=== PATIENT | female | born 1955 | race Caucasian/White ===

== ENCOUNTER → 2016-08-05 19:45 | Outpatient (CLI) | payer BC ==
[2013-08-25 10:58] VITALS: BMI 28.6
[~2016-08-05 19:45] MED LIST: BACTRIM 400-801 TAB PO; CIPRO500 MG PO; DECADRON4 MG OR; DILANTIN100 MG PO; ESTRACE2 MG PO; GENTAK5 ML EACH EYE; MUCINEX600 MG PO; NEURONTIN 100100 MG PO; PHENAZOPYRIDIN100 MG PO; PRAVACHOL40 MG PO; PROTONIX40 MG PO; PROTOPIC 0.1% O60 GM OR; SCOT-TUSSI10 MG/5 ML PO; XANAX0.5 MG OR; ZOLOFT100 MG PO
== END | disposition home or self-care (01) ==
LOC: D.SLEEP 19:45
DX: G47.36 Sleep related hypoventilation in conditions classified elsewhere (principal)

== ENCOUNTER → 2016-08-21 13:41 | Outpatient (CLI) | payer BC ==
[2013-08-25 10:58] VITALS: BMI 28.6
[2016-08-21 16:28] LABS: BASOPHILS 0.3 % (0.0-2.0); EOSINOPHILS 1.4 % (0-7); HEMATOCRIT 41.5 % (36.0-48.0); HEMOGLOBIN 13.6 g/dL (12-16); IMMATURE GRANULOCYTES 0.2 % (0-5); LYMPHOCYTES 34.6 % (15-50); MCH 31.9 pg (26.0-34.0); MCHC 32.8 g/dL (31.0-37.0); MCV 97.2 fL (80.0-100.0); MEAN PLATELET VOLUME 10.2 fL (7.4-10.4); MONOCYTES 5.6 % (2-11); NEUTROPHILS 57.9 % (40-80); RBC 4.27 10x6/uL (4.00-5.40); RDW 12.6 % (11.5-14.5); WBC 10.4 10x3/uL (4.8-10.8)
[2016-08-21 17:10] LABS: PLATELET COUNT 285 10x3/uL (130-400)
[2016-08-23 09:17] LABS: IMMUNOGLOBULIN E 16 IU/mL (0-100)
== END | disposition home or self-care (01) ==
LOC: D.RT 13:00
PROVIDERS: Internal Medicine Pulmonary Disease
DX: J45.909 Unspecified asthma, uncomplicated (principal)

== ENCOUNTER → 2016-11-04 08:59 | Outpatient (CLI) | payer BC ==
[2013-08-25 10:58] VITALS: BMI 28.6
== END ==
LOC: D.MAMMO 08:59
DX: Z12.31 Encounter for screening mammogram for malignant neoplasm of breast (principal)

== ENCOUNTER → 2017-08-28 08:57 | Outpatient (CLI) | payer BC ==
[2013-08-25 10:58] VITALS: BMI 28.6
== END | disposition home or self-care (01) ==
LOC: D.RAD 08:57
DX: J44.9 Chronic obstructive pulmonary disease, unspecified (principal)